=== PATIENT | female | born 1995 | race African-American/Black ===

== ENCOUNTER 2024-12-12 16:16 | Emergency (ER) | payer MEDICAID ==
[~2024-12-12] VITALS: Ht 154.9 cm; Wt 64.0 kg
[2024-12-12 16:22] VITALS: PULSE 99; RESP 20; O2SAT 99
[2024-12-12 16:54] VITALS: BP 105/65; TEMP 36.9; O2SAT 99
== END 2024-12-12 18:23 | disposition left against medical advice (07) ==
LOC: ER 16:16
DX: J06.9 Acute upper respiratory infection, unspecified (principal); B97.89 Other viral agents as the cause of diseases classified elsewhere
CPT/HCPCS: 71045; 99283